=== PATIENT | male | born 1945 | race Caucasian/White ===

== ENCOUNTER 2018-09-28 06:21 | Inpatient (IN) ==
[2018-09-19 15:04] LABS: Basophils # 0.1 10*3/uL (0.0-0.2); Basophils % 0.4 % (0.0-0.8); Eosinophils # 0.1 10*3/uL (0.0-0.87); Eosinophils % 0.4 % (0.00-10.9); Hematocrit 38.8 VOL% (42.0-52.0); Hemoglobin 12.4 GM/DL (14.0-18.0); Immature Granulocytes % 0.7 %; Immature Granulocytes Absolute 0.08 #; Lymphocytes # 1.6 10*3/uL (1.4-4.0); Lymphocytes % 13.8 % (21.2-54.2); Mean Corpuscular Volume 93.9 FL (87-102); Mean Platelet Volume 10.3 FL (9.6-12.0); Monocytes % 4.8 % (1.7-12.7); Neutrophils % 79.9 % (38.7-73.9); Platelet Count 172 T/CUMM (130-400); Red Blood Count 4.13 MC/CUMM (3.8-5.5); Red Cell Distribution Width 13.5 % (9.3-17.3); White Blood Count 11.2 T/CUMM (4-12)
[2018-09-19 15:59] LABS: Albumin 3.3 G/DL (3.4-5.0); Bilirubin,Total 0.4 MG/DL (0.2-1.0); Calcium 8.8 MG/DL (8.5-10.1); Osmolality,Calculated 294.8 MOS/KG (273-304); Total Protein 7.4 G/DL (6.4-8.3)
[~2018-09-28 06:21] MED LIST: ALVIMOPAN 12 MG CAPSULE PO ONE; cefOXitin 1,000 MG in SYRINGE 1 EACH IV ONE
[2018-09-28] MEDS ORDERED: ALVIMOPAN 12 MG CAPSULE ONE (06:42)
[2018-09-28] MEDS ORDERED: LACTATED RINGERS 1,000 ML IV SCH (07:00)
[2018-09-28] MEDS ORDERED: TISSUE ADHESIVE 1 EACH APPLICATOR TOP ONE (08:27)
[2018-09-28] MEDS ORDERED: LIDOCAINE 1% 20 ML VIAL ONE (08:27)
[2018-09-28] MEDS ORDERED: BUPIVACAINE MPF 0.25% /EPI 30 ML VIAL ONE (08:27)
[2018-09-28] MEDS ORDERED: INDOCYANINE GREEN 25 MG VIAL IV ONE (09:55)
[2018-09-28] MEDS ORDERED: HYDROmorphone 2 MG/1 ML VIAL IV PRN (11:16)
[2018-09-28] MEDS ORDERED: ONDANSETRON 4 MG/2 ML VIAL IV PRN ×2 (11:16→11:30)
[2018-09-28] MEDS ORDERED: PROMETHAZINE INJ 25 MG in SODIUM CHLORIDE 0.9% 50 ML IV PRN (11:16)
[2018-09-28] MEDS ORDERED: PROPOFOL 200 MG/20 ML VIAL IV ONE (11:24)
[2018-09-28] MEDS ORDERED: SEVOFLURANE 1 UNIT/15 MINUTE INH ONE (11:24)
[2018-09-28] MEDS ORDERED: MIDAZOLAM 2 MG/2 ML VIAL ONE (11:25)
[2018-09-28] MEDS ORDERED: NEOSTIGMINE 10 MG/10 ML VIAL ONE (11:25)
[2018-09-28] MEDS ORDERED: ONDANSETRON 4 MG/2 ML VIAL ONE ×2 (11:25→13:01)
[2018-09-28] MEDS ORDERED: fentaNYL 100 MCG/2 ML VIAL ONE (11:25)
[2018-09-28] MEDS ORDERED: GLYCOPYRROLATE 0.4 MG/2 ML VIAL ONE (11:25)
[2018-09-28] MEDS ORDERED: HYDROCORTISONE 100 MG VIAL ONE (11:25)
[2018-09-28] MEDS ORDERED: PHENYLEPHRINE 1 MG/10 ML SYRINGE IV ONE (11:25)
[2018-09-28] MEDS ORDERED: ROCURONIUM 100 MG/10 ML VIAL IV ONE (11:25)
[2018-09-28] MEDS ORDERED: MORPHINE 4 MG/1 ML VIAL IV PRN (11:30)
[2018-09-28] MEDS ORDERED: KETOROLAC 10 MG TABLET PO PRN (11:30)
[2018-09-28] MEDS ORDERED: DEXTROSE 10% 25 GM/250 ML BAG IV PRN (11:34)
[2018-09-28] MEDS ORDERED: GLUCAGON 1 MG VIAL IM PRN (11:34)
[2018-09-28] MEDS: DEXTROSE 5% LACTATED RINGERS 1,000 ML IV SCH ×2 (12:24→22:55)
[2018-09-28 12:28] LABS: Hematocrit 38.8 VOL% (42.0-52.0); Hemoglobin 12.4 GM/DL (14.0-18.0)
[2018-09-28] MEDS ORDERED: MEPERIDINE 25 MG/1 ML VIAL ONE ×2 (13:01→14:22)
[2018-09-28] MEDS: MEPERIDINE 25 MG/1 ML VIAL IV PRN ×2 (13:05→14:27)
[2018-09-28] MEDS ORDERED: PROMETHAZINE 25 MG/1 ML VIAL ONE (14:22)
[2018-09-28] MEDS: INSULIN REGULAR 100 UNIT/ML SUBCUT SCH ×2 (17:19→20:49)
[2018-09-28 19:43] LABS: Hematocrit 39.4 VOL% (42.0-52.0); Hemoglobin 12.4 GM/DL (14.0-18.0)
[2018-09-28] MEDS: ALVIMOPAN 12 MG CAPSULE PO SCH (20:49)
[2018-09-28] MEDS: DEXAMETHASONE 0.5 MG TABLET PO SCH (20:50)
[2018-09-28] MEDS: ASPIRIN EC 81 MG TABLET PO SCH (20:50)
[2018-09-29 04:51] LABS: Basophils % 0.4 % (0.0-0.8); Eosinophils % 0.1 % (0.00-10.9); Hematocrit 35.8 VOL% (42.0-52.0); Hemoglobin 11.1 GM/DL (14.0-18.0); Immature Granulocytes % 0.6 %; Immature Granulocytes Absolute 0.06 #; Lymphocytes # 1.6 10*3/uL (1.4-4.0); Lymphocytes % 14.4 % (21.2-54.2); Mean Corpuscular Volume 94.7 FL (87-102); Monocytes % 5.7 % (1.7-12.7); Neutrophils % 78.8 % (38.7-73.9); Platelet Count 155 T/CUMM (130-400); Red Blood Count 3.78 MC/CUMM (3.8-5.5); Red Cell Distribution Width 13.7 % (9.3-17.3); White Blood Count 10.8 T/CUMM (4-12)
[2018-09-29 05:09] LABS: Calcium 7.9 MG/DL (8.5-10.1); Osmolality,Calculated 282.5 MOS/KG (273-304)
[2018-09-29] MEDS: ENOXAPARIN 40 MG/0.4 ML SYRINGE SUBCUT SCH (05:47)
[2018-09-29] MEDS: DEXTROSE 5% LACTATED RINGERS 1,000 ML IV SCH ×2 (07:30→15:37)
[2018-09-29] MEDS: GLIMEPIRIDE 2 MG TABLET PO SCH (08:47)
[2018-09-29] MEDS: ESCITALOPRAM 10 MG TABLET PO SCH (08:47)
[2018-09-29] MEDS: LISINOPRIL 5 MG TABLET PO SCH (08:48)
[2018-09-29] MEDS: DEXAMETHASONE 0.5 MG TABLET PO SCH ×2 (08:48→21:24)
[2018-09-29] MEDS: ALVIMOPAN 12 MG CAPSULE PO SCH ×2 (08:48→21:25)
[2018-09-29] MEDS: INSULIN REGULAR 100 UNIT/ML SUBCUT SCH ×4 (08:48→21:24)
[2018-09-29] MEDS ORDERED: MELATONIN 3 MG TABLET PO PRN (21:19)
[2018-09-29] MEDS: ASPIRIN EC 81 MG TABLET PO SCH (21:25)
[2018-09-30] MEDS: DEXTROSE 5% LACTATED RINGERS 1,000 ML IV SCH ×2 (05:10→17:37)
[2018-09-30] MEDS: ENOXAPARIN 40 MG/0.4 ML SYRINGE SUBCUT SCH (05:46)
[2018-09-30] MEDS: INSULIN REGULAR 100 UNIT/ML SUBCUT SCH ×4 (08:53→20:51)
[2018-09-30] MEDS: LISINOPRIL 5 MG TABLET PO SCH (08:54)
[2018-09-30] MEDS: DEXAMETHASONE 0.5 MG TABLET PO SCH ×2 (08:54→20:50)
[2018-09-30] MEDS: GLIMEPIRIDE 2 MG TABLET PO SCH (08:54)
[2018-09-30] MEDS: ALVIMOPAN 12 MG CAPSULE PO SCH ×2 (08:54→20:49)
[2018-09-30] MEDS: ESCITALOPRAM 10 MG TABLET PO SCH (08:55)
[2018-09-30] MEDS: ASPIRIN EC 81 MG TABLET PO SCH (20:49)
[2018-10-01] MEDS: ENOXAPARIN 40 MG/0.4 ML SYRINGE SUBCUT SCH (05:29)
[2018-10-01] MEDS: DEXTROSE 5% LACTATED RINGERS 1,000 ML IV SCH ×2 (07:05→11:03)
[2018-10-01 07:58] VITALS: BP 146/68
[2018-10-01] MEDS: INSULIN REGULAR 100 UNIT/ML SUBCUT SCH (08:12)
[2018-10-01] MEDS: GLIMEPIRIDE 2 MG TABLET PO SCH (08:13)
[2018-10-01] MEDS: ESCITALOPRAM 10 MG TABLET PO SCH (08:15)
[2018-10-01] MEDS: DEXAMETHASONE 0.5 MG TABLET PO SCH (08:15)
[2018-10-01] MEDS: LISINOPRIL 5 MG TABLET PO SCH (08:15)
[2018-10-01] MEDS: ALVIMOPAN 12 MG CAPSULE PO SCH (08:17)
== END 2018-10-01 11:55 | disposition home or self-care (01) | DRG 330 ==
LOC: N.OR 06:21 → N.SDSINP 06:22 → N.3E 14:54
PROVIDERS: ADMIT Surgery; ATTEND Surgery

== ENCOUNTER 2020-01-23 14:31 | Inpatient (IN) ==
[2020-01-23] MEDS ORDERED: ONDANSETRON 4 MG/2 ML VIAL IV STA (14:36)
[2020-01-23] MEDS ORDERED: HYDROmorphone 2 MG/1 ML VIAL IV STA (14:36)
[2020-01-23 15:55] LABS: PT Patient Result 10.6 SECS (9.8-11.9); Partial Thromboplastin Time 24.8 SECS (23.9-33.8)
[2020-01-23 16:03] LABS: Albumin 3.5 G/DL (3.4-5.0); Bilirubin,Total 0.8 MG/DL (0.2-1.0); Osmolality,Calculated 281.8 MOS/KG (273-304); Total Protein 7.3 G/DL (6.4-8.3)
[2020-01-23 16:11] LABS: Basophils # 0.1 10*3/uL (0.0-0.2); Basophils % 0.8 % (0.0-0.8); Eosinophils # 0.1 10*3/uL (0.0-0.87); Eosinophils % 0.6 % (0.00-10.9); Hematocrit 29.7 VOL% (42.0-52.0); Hemoglobin 8.7 GM/DL (14.0-18.0); Immature Granulocytes % 1.9 %; Immature Granulocytes Absolute 0.23 #; Lymphocytes # 1.7 10*3/uL (1.4-4.0); Lymphocytes % 14.4 % (21.2-54.2); Mean Corpuscular HGB Conc 29.3 GM/DL (32-36); Mean Corpuscular Volume 79.8 FL (87-102); Monocytes % 5.9 % (1.7-12.7); Neutrophils % 76.4 % (38.7-73.9); Platelet Count 266 T/CUMM (130-400); Red Blood Count 3.72 MC/CUMM (3.8-5.5); Red Cell Distribution Width 17.8 % (9.3-17.3); White Blood Count 11.9 T/CUMM (4-12)
[2020-01-23] MEDS ORDERED: ONDANSETRON 4 MG/2 ML VIAL IV PRN (16:25)
[2020-01-23] MEDS ORDERED: LIDOCAINE 2% 5 ML VIAL ONE (16:25)
[2020-01-23] MEDS ORDERED: ROCURONIUM 50 MG/5 ML VIAL IV ONE (16:25)
[2020-01-23] MEDS ORDERED: propofoL 200 MG/20 ML VIAL IV ONE (16:25)
[2020-01-23] MEDS ORDERED: ACETAMINOPHEN 1,000 MG/100 ML VIAL IV ONE (16:25)
[2020-01-23] MEDS ORDERED: SODIUM CHLORIDE 0.9% 1,000 ML IV SCH (16:25)
[2020-01-23] MEDS ORDERED: ETOMIDATE 40 MG/20 ML VIAL IV ONE (16:25)
[2020-01-23] MEDS ORDERED: fentaNYL 100 MCG/2 ML VIAL ONE (16:25)
[2020-01-23] MEDS ORDERED: ONDANSETRON 4 MG/2 ML VIAL ONE (16:25)
[2020-01-23] MEDS ORDERED: ACETAMINOPHEN 325 MG TABLET PO PRN (16:25)
[2020-01-23] MEDS ORDERED: DEXAMETHASONE 4 MG/1 ML VIAL ONE ×2 (16:25→16:32)
[2020-01-23] MEDS ORDERED: DEXTROSE 50% 25 GM/50 ML VIAL IV PRN ×2 (16:25→18:34)
[2020-01-23] MEDS ORDERED: SUCCINYLCHOLINE 200 MG/10 ML VIAL ONE (16:25)
[2020-01-23] MEDS ORDERED: GLUCAGON 1 MG VIAL IM PRN ×2 (16:25→18:34)
[2020-01-23] MEDS ORDERED: INSULIN LISPRO 100 UNIT/ML SUBCUT SCH (16:30)
[2020-01-23] MEDS ORDERED: ROPIVACAINE 0.5% 30 ML VIAL ONE (16:32)
[2020-01-23] MEDS ORDERED: LIDOCAINE 1% 5 ML VIAL ONE (16:32)
[2020-01-23] MEDS ORDERED: HYDROCORTISONE 100 MG VIAL ONE (17:23)
[2020-01-23 17:36] LABS: Microcytosis 1+
[2020-01-23] MEDS ORDERED: PHENYLEPHRINE 1 MG/10 ML SYRINGE IV ONE ×2 (17:45→17:56)
[2020-01-23 17:49] LABS: Hypochromasia 2+; Polychromasia 1+
[2020-01-23 17:50] LABS: Platelet Estimate Normal
[2020-01-23] MEDS ORDERED: NEOSTIGMINE 10 MG/10 ML VIAL ONE (17:57)
[2020-01-23] MEDS ORDERED: GLYCOPYRROLATE 0.4 MG/2 ML VIAL ONE (17:57)
[2020-01-23] MEDS ORDERED: ceFAZolin 1,000 MG in SYRINGE 1 EACH IV ONE (18:00)
[2020-01-23] MEDS ORDERED: LACTULOSE 20 GM/30 ML UDCUP PO PRN (18:28)
[2020-01-23] MEDS ORDERED: oxyCODONE/ACETAMINOPHEN 5-325 MG TABLET PO PRN (18:28)
[2020-01-23] MEDS ORDERED: PROMETHAZINE 25 MG/1 ML VIAL IM PRN (18:28)
[2020-01-23] MEDS ORDERED: MAGNESIUM HYDROXIDE SUSP 30 ML UDCUP PO PRN (18:28)
[2020-01-23] MEDS ORDERED: diphenhydrAMINE CAP 25 MG CAPSULE PO PRN (18:28)
[2020-01-23] MEDS ORDERED: BISACODYL 10 MG SUPP RECTAL PRN (18:28)
[2020-01-23] MEDS ORDERED: MORPHINE 4 MG/1 ML VIAL IV PRN ×2 (18:28→18:45)
[2020-01-23] MEDS ORDERED: ACETAMINOPHEN/CODEINE 300-30 MG TABLET PO PRN (18:32)
[2020-01-23] MEDS: LACTATED RINGERS 1,000 ML IV SCH (19:50)
[2020-01-23] MEDS: INSULIN REGULAR 100 UNIT/ML SUBCUT SCH (20:50)
[2020-01-23] MEDS: predniSONE 5 MG TABLET PO SCH (20:50)
[2020-01-23] MEDS: DOCUSATE SODIUM 100 MG CAPSULE PO SCH (20:50)
[2020-01-23] MEDS: INSULIN GLARGINE 100 UNIT/ML SUBCUT SCH (20:50)
[2020-01-23] MEDS: GABAPENTIN 300 MG CAPSULE PO SCH (20:51)
[2020-01-23] MEDS: DEXAMETHASONE 0.5 MG TABLET PO SCH (21:17)
[2020-01-24] MEDS: FONDAPARINUX 2.5 MG/0.5 ML SYRINGE SUBCUT SCH (05:07)
[2020-01-24 06:14] LABS: Basophils % 0.2 % (0.0-0.8); Hematocrit 27.3 VOL% (42.0-52.0); Hemoglobin 7.9 GM/DL (14.0-18.0); Immature Granulocytes % 2.4 %; Lymphocytes # 0.7 10*3/uL (1.4-4.0); Mean Corpuscular HGB Conc 28.9 GM/DL (32-36); Mean Corpuscular Volume 80.5 FL (87-102); Mean Platelet Volume 9.9 FL (9.6-12.0); Monocytes % 3.1 % (1.7-12.7); Neutrophils % 90.3 % (38.7-73.9); Platelet Count 219 T/CUMM (130-400); Red Blood Count 3.39 MC/CUMM (3.8-5.5); Red Cell Distribution Width 17.6 % (9.3-17.3); White Blood Count 16.9 T/CUMM (4-12)
[2020-01-24] MEDS ORDERED: SODIUM CHLORIDE 0.9% 1,000 ML IV PRN (06:30)
[2020-01-24 06:37] LABS: Calcium 8.8 MG/DL (8.5-10.1); Osmolality,Calculated 283.7 MOS/KG (273-304); Potassium 4.8 MMOL/L (3.5-5.1)
[2020-01-24 07:11] LABS: Anisocytosis 1+; Band Neutrophils 1 % (0-10); Hypochromasia 1+; Lymphocytes 3 % (20-55); Microcytosis 1+; Platelet Estimate Normal; Segmented Neutrophils 94 % (50-85); Total Cells Counted 100
[2020-01-24 07:12] LABS: Polychromasia Slight
[2020-01-24 07:13] LABS: Stomatocytes Slight
[2020-01-24 07:14] LABS: Ovalocytes Few
[2020-01-24] MEDS: GABAPENTIN 300 MG CAPSULE PO SCH ×3 (08:41→20:10)
[2020-01-24] MEDS: lisinopriL 5 MG TABLET PO SCH (08:41)
[2020-01-24] MEDS: MULTIVITAMIN (CENTRUM) TABLET PO SCH (08:41)
[2020-01-24] MEDS: DOCUSATE SODIUM 100 MG CAPSULE PO SCH ×2 (08:41→20:10)
[2020-01-24] MEDS: PANTOPRAZOLE 40 MG TABLET PO SCH (08:42)
[2020-01-24] MEDS: MULTIVITAMIN (BEROCCA) TABLET PO SCH (08:42)
[2020-01-24] MEDS: ESCITALOPRAM 10 MG TABLET PO SCH (08:42)
[2020-01-24] MEDS: INSULIN REGULAR 100 UNIT/ML SUBCUT SCH ×4 (08:42→20:11)
[2020-01-24] MEDS: FOLIC ACID 0.4 MG TABLET PO SCH (08:42)
[2020-01-24] MEDS: GLIMEPIRIDE 2 MG TABLET PO SCH (08:42)
[2020-01-24] MEDS: CALCIUM (CARBONATE)/VITAMIN D 600 MG-400 UNIT TABLET PO SCH (08:42)
[2020-01-24] MEDS: ASPIRIN EC 81 MG TABLET PO SCH (08:42)
[2020-01-24] MEDS: DEXAMETHASONE 0.5 MG TABLET PO SCH ×2 (08:43→20:10)
[2020-01-24] MEDS: predniSONE 5 MG TABLET PO SCH ×2 (08:50→20:10)
[2020-01-24] MEDS: LACTATED RINGERS 1,000 ML IV SCH (14:57)
[2020-01-24] MEDS: ROSUVASTATIN 20 MG TABLET PO SCH (16:40)
[2020-01-24] MEDS: INSULIN GLARGINE 100 UNIT/ML SUBCUT SCH (20:11)
[2020-01-24] MEDS: ceFAZolin 1,000 MG in SYRINGE 1 EACH IV SCH (21:36)
[2020-01-24 21:48] LABS: Hematocrit 30.6 VOL% (42.0-52.0); Hemoglobin 9.1 GM/DL (14.0-18.0)
[2020-01-25] MEDS: oxyCODONE/ACETAMINOPHEN 5-325 MG TABLET PO PRN ×3 (02:27→20:52)
[2020-01-25] MEDS: ceFAZolin 1,000 MG in SYRINGE 1 EACH IV SCH ×2 (05:11→14:11)
[2020-01-25] MEDS: FONDAPARINUX 2.5 MG/0.5 ML SYRINGE SUBCUT SCH (05:11)
[2020-01-25 06:54] LABS: Basophils # 0.1 10*3/uL (0.0-0.2); Basophils % 0.3 % (0.0-0.8); Eosinophils # 0.1 10*3/uL (0.0-0.87); Eosinophils % 0.8 % (0.00-10.9); Hemoglobin 9.3 GM/DL (14.0-18.0); Immature Granulocytes % 1.3 %; Lymphocytes # 1.1 10*3/uL (1.4-4.0); Lymphocytes % 7.5 % (21.2-54.2); Mean Corpuscular Volume 80.3 FL (87-102); Mean Platelet Volume 9.5 FL (9.6-12.0); Monocytes % 5.5 % (1.7-12.7); NRBC # 0.02 10*3/uL; Neutrophils % 84.6 % (38.7-73.9); Platelet Count 193 T/CUMM (130-400); Red Blood Count 3.86 MC/CUMM (3.8-5.5); Red Cell Distribution Width 17.4 % (9.3-17.3); White Blood Count 14.9 T/CUMM (4-12)
[2020-01-25] MEDS: INSULIN REGULAR 100 UNIT/ML SUBCUT SCH ×4 (08:19→20:53)
[2020-01-25] MEDS: GABAPENTIN 300 MG CAPSULE PO SCH ×3 (10:24→20:51)
[2020-01-25] MEDS: DEXAMETHASONE 0.5 MG TABLET PO SCH ×2 (10:24→20:51)
[2020-01-25] MEDS: DOCUSATE SODIUM 100 MG CAPSULE PO SCH ×2 (10:25→20:51)
[2020-01-25] MEDS: ASPIRIN EC 81 MG TABLET PO SCH (10:25)
[2020-01-25] MEDS: MULTIVITAMIN (CENTRUM) TABLET PO SCH (10:25)
[2020-01-25] MEDS: FOLIC ACID 0.4 MG TABLET PO SCH (10:25)
[2020-01-25] MEDS: lisinopriL 5 MG TABLET PO SCH (10:25)
[2020-01-25] MEDS: MULTIVITAMIN (BEROCCA) TABLET PO SCH (10:25)
[2020-01-25] MEDS: GLIMEPIRIDE 2 MG TABLET PO SCH (10:25)
[2020-01-25] MEDS: ESCITALOPRAM 10 MG TABLET PO SCH (10:25)
[2020-01-25] MEDS: CALCIUM (CARBONATE)/VITAMIN D 600 MG-400 UNIT TABLET PO SCH (10:25)
[2020-01-25] MEDS: predniSONE 5 MG TABLET PO SCH ×2 (10:26→20:51)
[2020-01-25] MEDS: PANTOPRAZOLE 40 MG TABLET PO SCH (10:26)
[2020-01-25] MEDS: ROSUVASTATIN 20 MG TABLET PO SCH (17:03)
[2020-01-25] MEDS: INSULIN GLARGINE 100 UNIT/ML SUBCUT SCH (20:52)
[2020-01-26] MEDS: FONDAPARINUX 2.5 MG/0.5 ML SYRINGE SUBCUT SCH (05:44)
[2020-01-26 06:15] LABS: Basophils # 0.1 10*3/uL (0.0-0.2); Basophils % 0.4 % (0.0-0.8); Eosinophils # 0.1 10*3/uL (0.0-0.87); Eosinophils % 0.7 % (0.00-10.9); Hemoglobin 9.6 GM/DL (14.0-18.0); Immature Granulocytes Absolute 0.13 #; Lymphocytes # 0.8 10*3/uL (1.4-4.0); Lymphocytes % 6.2 % (21.2-54.2); Mean Corpuscular Volume 80.2 FL (87-102); Mean Platelet Volume 9.8 FL (9.6-12.0); Monocytes % 5.1 % (1.7-12.7); Neutrophils % 86.6 % (38.7-73.9); Platelet Count 196 T/CUMM (130-400); Red Blood Count 3.99 MC/CUMM (3.8-5.5); Red Cell Distribution Width 17.8 % (9.3-17.3); White Blood Count 13.2 T/CUMM (4-12)
[2020-01-26] MEDS: INSULIN REGULAR 100 UNIT/ML SUBCUT SCH ×4 (08:08→20:49)
[2020-01-26] MEDS: PANTOPRAZOLE 40 MG TABLET PO SCH (10:20)
[2020-01-26] MEDS: ESCITALOPRAM 10 MG TABLET PO SCH (10:20)
[2020-01-26] MEDS: DEXAMETHASONE 0.5 MG TABLET PO SCH ×2 (10:21→20:48)
[2020-01-26] MEDS: FOLIC ACID 0.4 MG TABLET PO SCH (10:21)
[2020-01-26] MEDS: predniSONE 5 MG TABLET PO SCH ×2 (10:21→20:48)
[2020-01-26] MEDS: MULTIVITAMIN (CENTRUM) TABLET PO SCH (10:21)
[2020-01-26] MEDS: ASPIRIN EC 81 MG TABLET PO SCH (10:21)
[2020-01-26] MEDS: GABAPENTIN 300 MG CAPSULE PO SCH ×3 (10:21→20:45)
[2020-01-26] MEDS: CALCIUM (CARBONATE)/VITAMIN D 600 MG-400 UNIT TABLET PO SCH (10:21)
[2020-01-26] MEDS: DOCUSATE SODIUM 100 MG CAPSULE PO SCH ×2 (10:21→20:45)
[2020-01-26] MEDS: lisinopriL 5 MG TABLET PO SCH (10:21)
[2020-01-26] MEDS: MULTIVITAMIN (BEROCCA) TABLET PO SCH (10:21)
[2020-01-26] MEDS: GLIMEPIRIDE 2 MG TABLET PO SCH (10:28)
[2020-01-26] MEDS: oxyCODONE/ACETAMINOPHEN 5-325 MG TABLET PO PRN ×2 (12:11→20:48)
[2020-01-26] MEDS: ROSUVASTATIN 20 MG TABLET PO SCH (16:42)
[2020-01-26] MEDS: INSULIN GLARGINE 100 UNIT/ML SUBCUT SCH (20:49)
[2020-01-27] MEDS: FONDAPARINUX 2.5 MG/0.5 ML SYRINGE SUBCUT SCH (06:08)
[2020-01-27] MEDS: INSULIN REGULAR 100 UNIT/ML SUBCUT SCH ×4 (09:13→21:37)
[2020-01-27] MEDS: GABAPENTIN 300 MG CAPSULE PO SCH ×3 (09:14→21:54)
[2020-01-27] MEDS: FOLIC ACID 0.4 MG TABLET PO SCH (09:14)
[2020-01-27] MEDS: MULTIVITAMIN (CENTRUM) TABLET PO SCH (09:14)
[2020-01-27] MEDS: MULTIVITAMIN (BEROCCA) TABLET PO SCH (09:14)
[2020-01-27] MEDS: ASPIRIN EC 81 MG TABLET PO SCH (09:14)
[2020-01-27] MEDS: DOCUSATE SODIUM 100 MG CAPSULE PO SCH ×2 (09:14→21:54)
[2020-01-27] MEDS: PANTOPRAZOLE 40 MG TABLET PO SCH (09:15)
[2020-01-27] MEDS: GLIMEPIRIDE 2 MG TABLET PO SCH (09:15)
[2020-01-27] MEDS: ESCITALOPRAM 10 MG TABLET PO SCH (09:15)
[2020-01-27] MEDS: DEXAMETHASONE 0.5 MG TABLET PO SCH ×2 (09:15→21:54)
[2020-01-27] MEDS: CALCIUM (CARBONATE)/VITAMIN D 600 MG-400 UNIT TABLET PO SCH (09:15)
[2020-01-27] MEDS: lisinopriL 5 MG TABLET PO SCH (09:15)
[2020-01-27] MEDS: predniSONE 5 MG TABLET PO SCH ×2 (09:15→21:54)
[2020-01-27] MEDS: oxyCODONE/ACETAMINOPHEN 5-325 MG TABLET PO PRN ×2 (14:17→21:55)
[2020-01-27] MEDS: ROSUVASTATIN 20 MG TABLET PO SCH (16:27)
[2020-01-27] MEDS: INSULIN GLARGINE 100 UNIT/ML SUBCUT SCH (21:54)
[2020-01-28] MEDS: FONDAPARINUX 2.5 MG/0.5 ML SYRINGE SUBCUT SCH (05:46)
[2020-01-28 06:06] LABS: Basophils % 0.3 % (0.0-0.8); Eosinophils # 0.2 10*3/uL (0.0-0.87); Eosinophils % 1.3 % (0.00-10.9); Hematocrit 30.3 VOL% (42.0-52.0); Immature Granulocytes % 0.8 %; Immature Granulocytes Absolute 0.09 #; Lymphocytes # 0.8 10*3/uL (1.4-4.0); Mean Corpuscular HGB Conc 29.7 GM/DL (32-36); Mean Corpuscular Volume 80.6 FL (87-102); Mean Platelet Volume 9.9 FL (9.6-12.0); Monocytes % 6.9 % (1.7-12.7); Neutrophils % 83.7 % (38.7-73.9); Platelet Count 223 T/CUMM (130-400); Red Blood Count 3.76 MC/CUMM (3.8-5.5); Red Cell Distribution Width 17.8 % (9.3-17.3); White Blood Count 11.9 T/CUMM (4-12)
[2020-01-28] MEDS ORDERED: GLIMEPIRIDE 2 MG TABLET PO SCH (08:00)
[2020-01-28] MEDS: GABAPENTIN 300 MG CAPSULE PO SCH (09:36)
[2020-01-28] MEDS: FOLIC ACID 0.4 MG TABLET PO SCH (09:36)
[2020-01-28] MEDS: CALCIUM (CARBONATE)/VITAMIN D 600 MG-400 UNIT TABLET PO SCH (09:36)
[2020-01-28] MEDS: ASPIRIN EC 81 MG TABLET PO SCH (09:36)
[2020-01-28] MEDS: MULTIVITAMIN (BEROCCA) TABLET PO SCH (09:37)
[2020-01-28] MEDS: lisinopriL 5 MG TABLET PO SCH (09:37)
[2020-01-28] MEDS: MULTIVITAMIN (CENTRUM) TABLET PO SCH (09:37)
[2020-01-28] MEDS: ESCITALOPRAM 10 MG TABLET PO SCH (09:37)
[2020-01-28] MEDS: PANTOPRAZOLE 40 MG TABLET PO SCH (09:37)
[2020-01-28] MEDS: INSULIN REGULAR 100 UNIT/ML SUBCUT SCH ×2 (10:09→11:16)
[2020-01-28] MEDS: DEXAMETHASONE 0.5 MG TABLET PO SCH (10:17)
[2020-01-28] MEDS: predniSONE 5 MG TABLET PO SCH (10:17)
[2020-01-28] MEDS: DOCUSATE SODIUM 100 MG CAPSULE PO SCH (10:17)
[2020-01-28 11:24] VITALS: BP 167/77
== END 2020-01-28 15:14 | DRG 481 ==
LOC: EDBD → EDUNIT# → N.ED 14:31 → N.EDINP 15:13 → N.3E 16:49
PROVIDERS: ADMIT Family Medicine; ATTEND Family Medicine

== ENCOUNTER 2020-05-12 09:45 | Inpatient (IN) ==
[2020-05-12] MEDS ORDERED: ONDANSETRON 4 MG/2 ML VIAL IV PRN (10:27)
[2020-05-12] MEDS ORDERED: DOCUSATE SODIUM 100 MG CAPSULE PO PRN (10:27)
[2020-05-12] MEDS ORDERED: DEXTROSE 50% 25 GM/50 ML VIAL IV PRN ×2 (10:27)
[2020-05-12] MEDS ORDERED: GLUCAGON 1 MG VIAL IM PRN (10:27)
[2020-05-12] MEDS ORDERED: ACETAMINOPHEN 325 MG TABLET PO PRN (10:27)
[2020-05-12] MEDS ORDERED: traMADol 50 MG TABLET PO PRN (12:38)
[2020-05-12 13:15] LABS: Basophils # 0.1 10*3/uL (0.0-0.2); Basophils % 0.5 % (0.0-0.8); Eosinophils # 0.1 10*3/uL (0.0-0.87); Eosinophils % 1.1 % (0.00-10.9); Hemoglobin 12.4 GM/DL (14.0-18.0); Immature Granulocytes % 0.8 %; Lymphocytes # 1.6 10*3/uL (1.4-4.0); Lymphocytes % 12.4 % (21.2-54.2); Mean Corpuscular HGB Conc 30.2 GM/DL (32-36); Mean Corpuscular Volume 95.6 FL (87-102); Mean Platelet Volume 9.6 FL (9.6-12.0); Monocytes % 5.4 % (1.7-12.7); Neutrophils % 79.8 % (38.7-73.9); Platelet Count 235 T/CUMM (130-400); Red Blood Count 4.29 MC/CUMM (3.8-5.5); Red Cell Distribution Width 15.6 % (9.3-17.3); White Blood Count 12.6 T/CUMM (4-12)
[2020-05-12] MEDS: PIPERACILLIN/TAZOBACTAM 3,375 MG in SODIUM CHLORIDE 0.9% 100 ML IV SCH ×2 (13:23→23:12)
[2020-05-12] MEDS: SODIUM CHLORIDE 0.9% 1,000 ML IV SCH (13:24)
[2020-05-12 13:41] LABS: Albumin 2.8 G/DL (3.4-5.0); Bilirubin,Total 0.5 MG/DL (0.2-1.0); Calcium 8.8 MG/DL (8.5-10.1); Osmolality,Calculated 272.4 MOS/KG (273-304); Potassium 4.2 MMOL/L (3.5-5.1); Total Protein 7.3 G/DL (5.0-7.5)
[2020-05-12] MEDS: INSULIN LISPRO 100 UNIT/ML SUBCUT SCH ×2 (16:32→23:02)
[2020-05-12] MEDS: ROSUVASTATIN 20 MG TABLET PO SCH (18:15)
[2020-05-12] MEDS: GABAPENTIN 300 MG CAPSULE PO SCH (23:01)
[2020-05-12] MEDS: DEXAMETHASONE 0.5 MG TABLET PO SCH (23:01)
[2020-05-12] MEDS: INSULIN GLARGINE 100 UNIT/ML SUBCUT SCH (23:02)
[2020-05-13] MEDS: SODIUM CHLORIDE 0.9% 1,000 ML IV SCH (03:59)
[2020-05-13] MEDS: PANTOPRAZOLE 40 MG TABLET PO SCH (05:48)
[2020-05-13] MEDS: PIPERACILLIN/TAZOBACTAM 3,375 MG in SODIUM CHLORIDE 0.9% 100 ML IV SCH ×2 (08:00→15:54)
[2020-05-13] MEDS ORDERED: propofoL 200 MG/20 ML VIAL IV ONE (08:52)
[2020-05-13] MEDS ORDERED: LIDOCAINE 2% 5 ML VIAL ONE (08:52)
[2020-05-13] MEDS ORDERED: fentaNYL 100 MCG/2 ML VIAL ONE (08:53)
[2020-05-13] MEDS: INSULIN LISPRO 100 UNIT/ML SUBCUT SCH ×4 (09:00→20:37)
[2020-05-13] MEDS ORDERED: SEVOFLURANE 1 UNIT/15 MINUTE INH ONE ×2 (09:25→09:46)
[2020-05-13] MEDS ORDERED: ONDANSETRON 4 MG/2 ML VIAL ONE (09:25)
[2020-05-13] MEDS ORDERED: PHENYLEPHRINE 1 MG/10 ML SYRINGE IV ONE (09:27)
[2020-05-13] MEDS ORDERED: ETOMIDATE 40 MG/20 ML VIAL IV ONE (09:27)
[2020-05-13] MEDS ORDERED: ACETAMINOPHEN 1,000 MG/100 ML VIAL IV ONE (09:37)
[2020-05-13] MEDS: GLIMEPIRIDE 2 MG TABLET PO SCH (11:21)
[2020-05-13] MEDS: lisinopriL 5 MG TABLET PO SCH (11:21)
[2020-05-13] MEDS: CALCIUM (CARBONATE)/VITAMIN D 600 MG-400 UNIT TABLET PO SCH (11:21)
[2020-05-13] MEDS: MULTIVITAMIN (BEROCCA) TABLET PO SCH (11:21)
[2020-05-13] MEDS: GABAPENTIN 300 MG CAPSULE PO SCH ×3 (11:21→20:29)
[2020-05-13] MEDS: ESCITALOPRAM 10 MG TABLET PO SCH (11:22)
[2020-05-13] MEDS: DEXAMETHASONE 0.5 MG TABLET PO SCH ×2 (11:25→20:28)
[2020-05-13] MEDS: MULTIVITAMIN (CENTRUM) TABLET PO SCH (11:25)
[2020-05-13] MEDS: FOLIC ACID 0.4 MG TABLET PO SCH (11:25)
[2020-05-13] MEDS: ROSUVASTATIN 20 MG TABLET PO SCH (16:04)
[2020-05-13] MEDS: INSULIN GLARGINE 100 UNIT/ML SUBCUT SCH (20:29)
[2020-05-14] MEDS: PIPERACILLIN/TAZOBACTAM 3,375 MG in SODIUM CHLORIDE 0.9% 100 ML IV SCH ×2 (00:26→11:36)
[2020-05-14] MEDS: SODIUM CHLORIDE 0.9% 1,000 ML IV SCH (02:34)
[2020-05-14] MEDS: PANTOPRAZOLE 40 MG TABLET PO SCH (06:27)
[2020-05-14 07:35] VITALS: BP 162/71
[2020-05-14] MEDS: INSULIN LISPRO 100 UNIT/ML SUBCUT SCH (08:01)
[2020-05-14] MEDS: GABAPENTIN 300 MG CAPSULE PO SCH (08:34)
[2020-05-14] MEDS: MULTIVITAMIN (BEROCCA) TABLET PO SCH (08:34)
[2020-05-14] MEDS: GLIMEPIRIDE 2 MG TABLET PO SCH (08:34)
[2020-05-14] MEDS: FOLIC ACID 0.4 MG TABLET PO SCH (08:34)
[2020-05-14] MEDS: CALCIUM (CARBONATE)/VITAMIN D 600 MG-400 UNIT TABLET PO SCH (08:34)
[2020-05-14] MEDS: ESCITALOPRAM 10 MG TABLET PO SCH (08:34)
[2020-05-14] MEDS: DEXAMETHASONE 0.5 MG TABLET PO SCH (08:34)
[2020-05-14] MEDS: MULTIVITAMIN (CENTRUM) TABLET PO SCH (08:35)
[2020-05-14] MEDS: lisinopriL 5 MG TABLET PO SCH (08:35)
== END 2020-05-14 11:35 | disposition home health service (06) | DRG 240 ==
LOC: N.5E 10:34
PROVIDERS: ADMIT Family Medicine; ATTEND Family Medicine

== ENCOUNTER 2022-04-11 10:32 | Inpatient (IN) ==
[2022-04-11] MEDS ORDERED: ONDANSETRON 4 MG/2 ML VIAL IV STA (11:00)
[2022-04-11] MEDS ORDERED: SODIUM CHLORIDE 0.9% 1,000 ML IV STA (11:00)
[2022-04-11 11:38] LABS: Basophils % 0.5 % (0.0-0.8); Eosinophils % 0.1 % (0.00-10.9); Hematocrit 40.6 VOL% (42.0-52.0); Hemoglobin 13.4 GM/DL (14.0-18.0); Immature Granulocytes % 0.9 %; Immature Granulocytes Absolute 0.07 #; Lymphocytes # 0.5 10*3/uL (1.4-4.0); Lymphocytes % 6.2 % (21.2-54.2); Mean Corpuscular Volume 102.8 FL (87-102); Mean Platelet Volume 9.1 FL (9.6-12.0); Monocytes # 0.4 10*3/uL (0.11-0.8); Monocytes % 5.3 % (1.7-12.7); Platelet Count 194 T/CUMM (130-400); Red Blood Count 3.95 MC/CUMM (3.8-5.5); Red Cell Distribution Width 13.4 % (9.3-17.3); White Blood Count 7.87 T/CUMM (4-12)
[2022-04-11 11:55] LABS: Albumin 2.9 G/DL (3.4-5.0); Bilirubin,Total 0.4 MG/DL (0.20-1.00); Calcium 8.7 MG/DL (8.5-10.1); Osmolality,Calculated 279.3 MOS/KG (273-304); Potassium 3.9 MMOL/L (3.5-5.1); Total Protein 6.7 G/DL (6.4-8.2)
[2022-04-11 12:00] LABS: Glucose,Urine (UA) Negative (Negative); Mucus,Urine Few /LPF (Occasional); Protein,Urine 30 mg/dL (Negative); RBC,Urine 7 /HPF (0-4); Urine Appearance Cloudy (Clear); Urine Color Yellow (Yellow)
[2022-04-11 12:01] LABS: Bilirubin,Urine Negative (Negative); Blood, Urine Trace mg/dL (Negative); Ketones,Urine Negative (Negative); Nitrite,Urine Positive (Negative)
[2022-04-11] MEDS ORDERED: cefTRIAXone 1,000 MG in SODIUM CHLORIDE 0.9% 100 ML IV STA (12:20)
[2022-04-11] MEDS ORDERED: ACETAMINOPHEN 325 MG TABLET PO PRN (12:32)
[2022-04-11] MEDS ORDERED: ONDANSETRON 4 MG/2 ML VIAL IV PRN (12:32)
[2022-04-11] MEDS ORDERED: DEXTROSE 50% 25 GM/50 ML SYRINGE IV ONE (13:44)
[2022-04-11] MEDS ORDERED: ENOXAPARIN 40 MG/0.4 ML SYRINGE SUBCUT SCH (14:00)
[2022-04-11] MEDS ORDERED: DEXTROSE 5% NACL 0.45% 1,000 ML IV SCH (15:00)
[2022-04-11] MEDS ORDERED: DEXTROSE 50% 25 GM/50 ML VIAL IV ONE (16:14)
[2022-04-11 16:34] LABS: CKMB % 13.62 %
[2022-04-11 16:41] LABS: High Sensitive Troponin I* 4790.7 ng/L (0-78)
[2022-04-11] MEDS ORDERED: hydrALAZINE 20 MG/1 ML VIAL IV PRN (17:16)
[2022-04-11] MEDS: DOCUSATE SODIUM 100 MG CAPSULE PO SCH (20:41)
[2022-04-11] MEDS: ENOXAPARIN 100 MG/ML SYRINGE SUBCUT SCH (20:41)
[2022-04-11] MEDS ORDERED: DEXTROSE 50% 25 GM/50 ML VIAL IV PRN (20:55)
[2022-04-11] MEDS: DEXTROSE 10% 250 ML BAG IV PRN (21:06)
[2022-04-11] MEDS: ASPIRIN 325 MG TABLET PO SCH (21:23)
[2022-04-12] MEDS: DEXTROSE 10% 250 ML BAG IV PRN ×2 (00:08→01:31)
[2022-04-12] MEDS: DEXTROSE 10% IV SCH ×2 (01:07→15:03)
[2022-04-12] MEDS: SODIUM CHLORIDE IV SCH ×2 (01:07→15:03)
[2022-04-12 04:50] LABS: Basophils # 0.1 10*3/uL (0.0-0.2); Basophils % 0.8 % (0.0-0.8); Eosinophils # 0.1 10*3/uL (0.0-0.87); Eosinophils % 1.1 % (0.00-10.9); Hematocrit 34.2 VOL% (42.0-52.0); Immature Granulocytes % 0.5 %; Immature Granulocytes Absolute 0.04 #; Lymphocytes # 0.8 10*3/uL (1.4-4.0); Lymphocytes % 10.6 % (21.2-54.2); Mean Corpuscular HGB Conc 32.5 GM/DL (32-36); Monocytes # 0.5 10*3/uL (0.11-0.8); Monocytes % 6.3 % (1.7-12.7); Neutrophils % 80.7 % (38.7-73.9); Platelet Count 168 T/CUMM (130-400); Red Blood Count 3.29 MC/CUMM (3.8-5.5); Red Cell Distribution Width 13.7 % (9.3-17.3); White Blood Count 7.83 T/CUMM (4-12)
[2022-04-12 04:59] LABS: Hemoglobin 11.1 GM/DL (14.0-18.0)
[2022-04-12 05:26] LABS: Calcium 8.1 MG/DL (8.5-10.1); Risk Ratio 1.77; Thyroid Stimulating Hormone 0.445 uIU/ml (0.358-3.74); VLDL Cholesterol 12.2 MG/DL
[2022-04-12] MEDS ORDERED: lisinopriL 5 MG TABLET PO SCH (09:00)
[2022-04-12] MEDS: PANTOPRAZOLE 40 MG TABLET PO SCH (10:40)
[2022-04-12] MEDS: DOCUSATE SODIUM 100 MG CAPSULE PO SCH ×2 (10:40→21:47)
[2022-04-12] MEDS: ASPIRIN 325 MG TABLET PO SCH (10:41)
[2022-04-12] MEDS: ENOXAPARIN 100 MG/ML SYRINGE SUBCUT SCH (10:41)
[2022-04-12] MEDS: cefTRIAXone 1,000 MG in SODIUM CHLORIDE 0.9% 100 ML IV SCH (16:05)
[2022-04-12] MEDS ORDERED: ACETAMINOPHEN 325 MG TABLET PO PRN (16:23)
[2022-04-12] MEDS: HYDROCORTISONE 100 MG VIAL IV SCH (17:50)
[2022-04-12] MEDS: ROSUVASTATIN 20 MG TABLET PO SCH (17:51)
[2022-04-12] MEDS: predniSONE 5 MG TABLET PO SCH (21:47)
[2022-04-12] MEDS: DEXAMETHASONE 0.5 MG TABLET PO SCH (21:47)
[2022-04-12] MEDS: GABAPENTIN 300 MG CAPSULE PO SCH (21:48)
[2022-04-13] MEDS: HYDROCORTISONE 100 MG VIAL IV SCH ×2 (01:18→05:31)
[2022-04-13] MEDS ORDERED: DEXTROSE 5% NACL 0.45% 1,000 ML IV SCH (02:00)
[2022-04-13 04:59] LABS: Hematocrit 37.9 VOL% (42.0-52.0); Hemoglobin 12.4 GM/DL (14.0-18.0); Immature Granulocytes % 0.6 %; Immature Granulocytes Absolute 0.04 #; Lymphocytes # 0.3 10*3/uL (1.4-4.0); Mean Corpuscular HGB Conc 32.7 GM/DL (32-36); Mean Corpuscular Volume 102.4 FL (87-102); Mean Platelet Volume 9.3 FL (9.6-12.0); Monocytes # 0.1 10*3/uL (0.11-0.8); Monocytes % 1.5 % (1.7-12.7); Neutrophils % 92.9 % (38.7-73.9); Platelet Count 169 T/CUMM (130-400); Red Cell Distribution Width 13.3 % (9.3-17.3); White Blood Count 6.86 T/CUMM (4-12)
[2022-04-13 05:23] LABS: Calcium 8.3 MG/DL (8.5-10.1); Osmolality,Calculated 290.4 MOS/KG (273-304); Potassium 4.4 MMOL/L (3.5-5.1)
[2022-04-13 05:26] LABS: Albumin 2.4 G/DL (3.4-5.0); Bilirubin,Total 0.4 MG/DL (0.20-1.00); Calcium 8.2 MG/DL (8.5-10.1); Osmolality,Calculated 291.4 MOS/KG (273-304); Potassium 4.5 MMOL/L (3.5-5.1); Total Protein 5.3 G/DL (6.4-8.2)
[2022-04-13 05:30] LABS: Band Neutrophils 1 % (0-10); Lymphocytes 5 % (20-55); Total Cells Counted 100
[2022-04-13 05:31] LABS: Macrocytosis Slight; Platelet Estimate Adequate
[2022-04-13] MEDS ORDERED: INSULIN REGULAR 100 UNIT/ML SUBCUT ONE (06:45)
[2022-04-13] MEDS: SODIUM CHLORIDE 0.9% 1,000 ML IV SCH ×2 (08:18→21:35)
[2022-04-13] MEDS: INSULIN REGULAR 100 UNIT/ML SUBCUT SCH ×4 (10:30→22:35)
[2022-04-13] MEDS: GABAPENTIN 300 MG CAPSULE PO SCH ×3 (10:31→21:34)
[2022-04-13] MEDS: ENOXAPARIN 40 MG/0.4 ML SYRINGE SUBCUT SCH (10:31)
[2022-04-13] MEDS: ASPIRIN EC 81 MG TABLET PO SCH (10:31)
[2022-04-13] MEDS: predniSONE 5 MG TABLET PO SCH ×2 (10:32→21:34)
[2022-04-13] MEDS: PANTOPRAZOLE 40 MG TABLET PO SCH (10:32)
[2022-04-13] MEDS: FOLIC ACID 1 MG TABLET PO SCH (10:32)
[2022-04-13] MEDS: DOCUSATE SODIUM 100 MG CAPSULE PO SCH ×2 (10:32→21:34)
[2022-04-13] MEDS: DEXAMETHASONE 0.5 MG TABLET PO SCH ×2 (10:33→21:34)
[2022-04-13] MEDS: ESCITALOPRAM 10 MG TABLET PO SCH (10:38)
[2022-04-13] MEDS: cefTRIAXone 1,000 MG in SODIUM CHLORIDE 0.9% 100 ML IV SCH (13:00)
[2022-04-13] MEDS: carvediloL 3.125 MG TABLET PO SCH ×2 (14:58→18:38)
[2022-04-13] MEDS: ROSUVASTATIN 20 MG TABLET PO SCH (18:38)
[2022-04-13] MEDS ORDERED: INSULIN GLARGINE 100 UNIT/ML SUBCUT SCH (21:00)
[2022-04-14 05:23] LABS: Basophils % 0.1 % (0.0-0.8); Hematocrit 35.4 VOL% (42.0-52.0); Hemoglobin 11.4 GM/DL (14.0-18.0); Immature Granulocytes % 0.6 %; Immature Granulocytes Absolute 0.05 #; Lymphocytes # 0.5 10*3/uL (1.4-4.0); Mean Corpuscular HGB Conc 32.2 GM/DL (32-36); Mean Corpuscular Volume 102.3 FL (87-102); Mean Platelet Volume 9.5 FL (9.6-12.0); Monocytes # 0.3 10*3/uL (0.11-0.8); Monocytes % 3.4 % (1.7-12.7); Neutrophils % 89.9 % (38.7-73.9); Platelet Count 180 T/CUMM (130-400); Red Blood Count 3.46 MC/CUMM (3.8-5.5); Red Cell Distribution Width 13.1 % (9.3-17.3); White Blood Count 9.04 T/CUMM (4-12)
[2022-04-14 05:51] LABS: Calcium 8.1 MG/DL (8.5-10.1); Osmolality,Calculated 287.4 MOS/KG (273-304); Potassium 4.2 MMOL/L (3.5-5.1)
[2022-04-14] MEDS: carvediloL 3.125 MG TABLET PO SCH ×2 (09:55→18:07)
[2022-04-14] MEDS: ENOXAPARIN 40 MG/0.4 ML SYRINGE SUBCUT SCH (09:55)
[2022-04-14] MEDS: FOLIC ACID 1 MG TABLET PO SCH (09:55)
[2022-04-14] MEDS: ESCITALOPRAM 10 MG TABLET PO SCH (09:55)
[2022-04-14] MEDS: GABAPENTIN 300 MG CAPSULE PO SCH ×3 (09:55→21:06)
[2022-04-14] MEDS: PANTOPRAZOLE 40 MG TABLET PO SCH (09:56)
[2022-04-14] MEDS: DOCUSATE SODIUM 100 MG CAPSULE PO SCH ×2 (09:56→21:06)
[2022-04-14] MEDS: INSULIN REGULAR 100 UNIT/ML SUBCUT SCH ×4 (09:56→21:06)
[2022-04-14] MEDS: DEXAMETHASONE 0.5 MG TABLET PO SCH ×2 (10:10→21:06)
[2022-04-14] MEDS: ASPIRIN EC 81 MG TABLET PO SCH (10:10)
[2022-04-14] MEDS: LEVOFLOXACIN INJ 500 MG/100 ML PREMIX IV SCH (10:12)
[2022-04-14] MEDS: predniSONE 5 MG TABLET PO SCH ×2 (10:12→22:01)
[2022-04-14] MEDS: INSULIN GLARGINE 100 UNIT/ML SUBCUT SCH ×2 (10:15→21:06)
[2022-04-14] MEDS ORDERED: NITROGLYCERIN SL 0.4 MG TABLET SL PRN (10:59)
[2022-04-14] MEDS: SODIUM CHLORIDE 0.9% 1,000 ML IV SCH ×2 (12:24→22:02)
[2022-04-14] MEDS: ROSUVASTATIN 20 MG TABLET PO SCH (18:07)
[2022-04-15 05:23] LABS: Basophils % 0.3 % (0.0-0.8); Eosinophils # 0.1 10*3/uL (0.0-0.87); Eosinophils % 1.8 % (0.00-10.9); Hematocrit 34.3 VOL% (42.0-52.0); Hemoglobin 11.2 GM/DL (14.0-18.0); Immature Granulocytes % 0.4 %; Immature Granulocytes Absolute 0.03 #; Lymphocytes # 0.8 10*3/uL (1.4-4.0); Lymphocytes % 12.4 % (21.2-54.2); Mean Corpuscular HGB Conc 32.7 GM/DL (32-36); Mean Corpuscular Volume 102.4 FL (87-102); Mean Platelet Volume 9.1 FL (9.6-12.0); Monocytes # 0.5 10*3/uL (0.11-0.8); Monocytes % 6.8 % (1.7-12.7); Neutrophils % 78.3 % (38.7-73.9); Platelet Count 168 T/CUMM (130-400); Red Blood Count 3.35 MC/CUMM (3.8-5.5); Red Cell Distribution Width 13.2 % (9.3-17.3); White Blood Count 6.78 T/CUMM (4-12)
[2022-04-15 05:54] LABS: Calcium 7.7 MG/DL (8.5-10.1); Osmolality,Calculated 280.3 MOS/KG (273-304); Potassium 3.9 MMOL/L (3.5-5.1)
[2022-04-15] MEDS ORDERED: GLUCAGON 1 MG VIAL IM PRN (07:41)
[2022-04-15] MEDS: INSULIN REGULAR 100 UNIT/ML SUBCUT SCH (07:47)
[2022-04-15] MEDS: carvediloL 3.125 MG TABLET PO SCH (08:34)
[2022-04-15 08:40] VITALS: BP 149/70
[2022-04-15] MEDS: DOCUSATE SODIUM 100 MG CAPSULE PO SCH (09:13)
[2022-04-15] MEDS: ASPIRIN EC 81 MG TABLET PO SCH (09:13)
[2022-04-15] MEDS: predniSONE 5 MG TABLET PO SCH (09:14)
[2022-04-15] MEDS: PANTOPRAZOLE 40 MG TABLET PO SCH (09:14)
[2022-04-15] MEDS: LEVOFLOXACIN INJ 500 MG/100 ML PREMIX IV SCH (09:14)
[2022-04-15] MEDS: ESCITALOPRAM 10 MG TABLET PO SCH (09:14)
[2022-04-15] MEDS: ENOXAPARIN 40 MG/0.4 ML SYRINGE SUBCUT SCH (09:14)
[2022-04-15] MEDS: FOLIC ACID 1 MG TABLET PO SCH (09:14)
[2022-04-15] MEDS: GABAPENTIN 300 MG CAPSULE PO SCH (09:14)
[2022-04-15] MEDS: INSULIN GLARGINE 100 UNIT/ML SUBCUT SCH (09:37)
[2022-04-15] MEDS: DEXAMETHASONE 0.5 MG TABLET PO SCH (09:39)
[2022-04-15] MEDS ORDERED: DEXAMETHASONE 0.5 MG TABLET PO SCH (12:00)
== END 2022-04-15 11:44 | disposition swing bed (61) | DRG 638 ==
LOC: EDBD → EDUNIT# → N.EDINP 10:32 → N.ED 10:32 → N.2W 13:28 → N.TELES 14:49
PROVIDERS: ADMIT Family Medicine; ATTEND Family Medicine